=== PATIENT | male | born 1930 | race African-American/Black ===

== ENCOUNTER 2019-08-09 21:28 | Inpatient (IN) | payer OTHER ==
[~2019-08-09] VITALS: Ht 182.9 cm; Wt 98.4 kg
[~2019-08-09 21:28] MED LIST: ALLO300T2 PO; ASPI-1497 PO; ATOR40TA70 PO; CALCIUM PO; FERR-43 PO; HYDR25TA PO; LOSA50TA41 PO; PRAZ1CAP5 PO; TIOT18CA3 INH
[2019-08-09] MEDS ORDERED: SODIUM CHLORIDE 0.9% 1,000 ML IV ONE (22:21)
[2019-08-09 23:16] LABS: BG BASE EXCESS -6.7 mmol/L (-2.0-2.0); BG CARBOXYHEMOGLOBIN 0.3 % (0.5-1.5); BG FRACTION INSPIRED OXYGEN 21; BG METHEMOGLOBIN 0.1 % (0.0-1.5); BG OXYHEMOGLOBIN 92.6 % (94.0-97.0); BG PCO2 32.3 mmHg (35.0-45.0); BG PH 7.363 (7.350-7.450); BG PO2 70.6 mmHg (75.0-100.0); BG SAMPLE SITE RIGHT RADIAL; BG TOTAL HEMOGLOBIN 8.7 g/dL (12.0-18.0); BG VENT MODE ROOM AIR
[2019-08-09 23:20] LABS: BASOPHILS % 0.1 % (0.0-2.0); EOSINOPHILS % 0.7 % (0.0-5.0); HEMATOCRIT. 23.5 % (42.0-52.0); HEMOGLOBIN. 7.9 g/dL (14.0-18.0); LYMPHOCYTES % 9.3 % (20.0-50.0); MEAN CORPUSCULAR HEMOGLOBIN 31.7 pg (28.0-32.0); MEAN CORPUSCULAR VOLUME 94.2 fL (80.0-94.0); MONOCYTES % 7.9 % (2.0-8.0); PLATELET 134 x1000/uL (130-400); RED CELL DISTRIBUTION WIDTH 16.8 % (11.6-14.6)
[2019-08-09 23:27] LABS: CHLORIDE 118 mEq/L (98-107)
[2019-08-10] VITALS (68 sets, daily range): BP systolic 78–147; BP diastolic 28–116
[2019-08-10] MEDS ORDERED: VANCOMYCIN 1 G PREMIX 200 ML IV ONE (00:45)
[2019-08-10] MEDS ORDERED: PIPERACILLIN/TAZ 3.375G PREMIX 50 ML IV ONE (00:45)
[2019-08-10] MEDS ORDERED: SODIUM CHLORIDE 0.9% 1,000 ML IV NR (02:45)
[2019-08-10] MEDS ORDERED: NOREPINEPHRINE 4 MG in DEXT 5% WATER 250 ML IV STA (02:45)
[2019-08-10] MEDS ORDERED: OLANZAPINE 10 MG/VIAL IM NR (02:45)
[2019-08-10] MEDS ORDERED: NOREPINEPHRINE 4MG/250ML PMX 250 ML IV PRN (03:00)
[2019-08-10] MEDS ORDERED: MIDAZOLAM HCL 2 MG/2 ML VIAL IV ONE (03:15)
[2019-08-10] MEDS ORDERED: MIDAZOLAM HCL 2 MG/2 ML VIAL ONE (03:20)
[2019-08-10] MEDS ORDERED: EPINEPHRINE 1 MG in SODIUM CHLORIDE 0.9% 250 ML IV STA (03:56)
[2019-08-10] MEDS ORDERED: NOREPINEPHRINE 16 MG in DEXT 5% WATER 234 ML IV PRN (05:45)
[2019-08-10] MEDS ORDERED: DEXTROSE 50% WATER 50ML SYRINGE IV PRN (05:45)
[2019-08-10] MEDS: BLOOD SUGAR DIAGNOSTIC STRIP TEST SCH ×4 (06:52→21:31)
[2019-08-10] MEDS: INSULIN LISPRO 100 UNITS/ML SUBCUT SCH ×4 (07:01→21:00)
[2019-08-10] MEDS: NOREPINEPHRINE 16 MG in DEXT 5% WATER 234 ML IV PRN (07:02)
[2019-08-10] MEDS: PIPERACILLIN/TAZOBACTAM 2.25 G in DEXTROSE 5% WATER 50 ML IV SCH ×2 (08:47→16:51)
[2019-08-10] MEDS ORDERED: VANCOMYCIN 1 G PREMIX 200 ML IV SCH (09:00)
[2019-08-10 09:07] LABS: BASOPHILS % 0.1 % (0.0-2.0); EOSINOPHILS % 0.9 % (0.0-5.0); HEMATOCRIT. 24.4 % (42.0-52.0); HEMOGLOBIN. 8.2 g/dL (14.0-18.0); LYMPHOCYTES % 16.4 % (20.0-50.0); MEAN CORPUSCULAR HEMOGLOBIN 31.6 pg (28.0-32.0); MEAN CORPUSCULAR VOLUME 94.4 fL (80.0-94.0); MEAN PLATELET VOLUME 8.9 fl (7.4-10.4); NEUTROPHILS % 74.6 % (40.0-76.0); PLATELET 137 x1000/uL (130-400); RED BLOOD CELL COUNT 2.58 mill/uL (4.7-6.1); RED CELL DISTRIBUTION WIDTH 17.3 % (11.6-14.6)
[2019-08-10] MEDS: BISACODYL 10MG SUPP PR NR ×2 (10:15→11:41)
[2019-08-10] MEDS: NEOMY SULF/BACITRAC ZN/POLY OINT 28GM TOP SCH (10:30)
[2019-08-10 11:03] LABS: TOTAL IRON BINDING CAPACITY 172 ug/dL (250-450)
[2019-08-10] MEDS: MIDODRINE HCL 5MG TABLET PO SCH ×3 (11:41→16:51)
[2019-08-10] MEDS: SODIUM CHLORIDE 0.45% 1,000 ML IV SCH (11:41)
[2019-08-10] MEDS: ONDANSETRON HCL 4MG/2ML INJ IV PRN ×2 (13:24→22:29)
[2019-08-10] MEDS: RISPERIDONE 0.5MG TABLET NG SCH (13:24)
[2019-08-10] MEDS ORDERED: MEGE40TA8 PO (19:08)
[2019-08-10] MEDS ORDERED: DILT120C46 MT (19:08)
[2019-08-10] MEDS ORDERED: TRAZ-252 PO (19:08)
[2019-08-10] MEDS ORDERED: FURO20TA4 PO (19:08)
[2019-08-10] MEDS ORDERED: TERA5CAP4 PO (19:08)
[2019-08-11] VITALS (93 sets, daily range): BP systolic 68–134; BP diastolic 18–94
[2019-08-11] MEDS: PIPERACILLIN/TAZOBACTAM 2.25 G in DEXTROSE 5% WATER 50 ML IV SCH ×3 (00:04→15:37)
[2019-08-11] MEDS: NOREPINEPHRINE 16 MG in DEXT 5% WATER 234 ML IV PRN ×2 (00:09→20:24)
[2019-08-11] MEDS: SODIUM CHLORIDE 0.45% 1,000 ML IV SCH (03:59)
[2019-08-11] MEDS: BLOOD SUGAR DIAGNOSTIC STRIP TEST SCH ×4 (05:32→20:28)
[2019-08-11 05:59] LABS: BASOPHILS % 0.1 % (0.0-2.0); EOSINOPHILS % 0.2 % (0.0-5.0); HEMATOCRIT. 26.8 % (42.0-52.0); HEMOGLOBIN. 9.1 g/dL (14.0-18.0); LYMPHOCYTES % 7.8 % (20.0-50.0); MEAN CORPUSCULAR HEMOGLOBIN 31.9 pg (28.0-32.0); MEAN CORPUSCULAR VOLUME 94.3 fL (80.0-94.0); MEAN PLATELET VOLUME 9.5 fl (7.4-10.4); NEUTROPHILS % 83.9 % (40.0-76.0); PLATELET 150 x1000/uL (130-400); RED BLOOD CELL COUNT 2.85 mill/uL (4.7-6.1); RED CELL DISTRIBUTION WIDTH 16.7 % (11.6-14.6)
[2019-08-11 06:13] LABS: PHOSPHORUS 4.2 mg/dL (2.5-4.9)
[2019-08-11] MEDS: INSULIN LISPRO 100 UNITS/ML SUBCUT SCH ×4 (06:21→20:24)
[2019-08-11] MEDS: RISPERIDONE 0.5MG TABLET NG SCH (08:20)
[2019-08-11] MEDS: MIDODRINE HCL 5MG TABLET PO SCH ×3 (08:21→16:36)
[2019-08-11] MEDS: NEOMY SULF/BACITRAC ZN/POLY OINT 28GM TOP SCH (08:22)
[2019-08-11] MEDS ORDERED: SODIUM POLYSTYRENE SULFONATE 15 G/60 ML BOT PO SCH (09:00)
[2019-08-11] MEDS ORDERED: PANTOPRAZOLE SODIUM 40 MG/VIAL IV SCH (09:00)
[2019-08-11] MEDS: DEXT 5%/0.45% NACL 1000ML 1,000 ML IV SCH (12:37)
[2019-08-11] MEDS: MORPHINE SULFATE 2 MG/ML CPJ (NOT FOR IM USE) IV PRN ×2 (14:51→21:31)
[2019-08-12] VITALS (75 sets, daily range): BP systolic 74–129; BP diastolic 32–72
[2019-08-12] MEDS: MORPHINE SULFATE 2 MG/ML CPJ (NOT FOR IM USE) IV PRN ×3 (00:17→16:06)
[2019-08-12] MEDS: PIPERACILLIN/TAZOBACTAM 2.25 G in DEXTROSE 5% WATER 50 ML IV SCH ×2 (00:21→10:15)
[2019-08-12] MEDS: DEXT 5%/0.45% NACL 1000ML 1,000 ML IV SCH (02:34)
[2019-08-12 05:24] LABS: BASOPHILS % 0.1 % (0.0-2.0); EOSINOPHILS % 0.9 % (0.0-5.0); HEMATOCRIT. 28.2 % (42.0-52.0); HEMOGLOBIN. 9.5 g/dL (14.0-18.0); LYMPHOCYTES % 7.5 % (20.0-50.0); MEAN CORPUSCULAR HEMOGLOBIN 31.5 pg (28.0-32.0); MEAN CORPUSCULAR VOLUME 94.2 fL (80.0-94.0); NEUTROPHILS % 82.5 % (40.0-76.0); PLATELET 164 x1000/uL (130-400); RED CELL DISTRIBUTION WIDTH 17.1 % (11.6-14.6)
[2019-08-12 05:47] LABS: PHOSPHORUS 5.3 mg/dL (2.5-4.9)
[2019-08-12] MEDS: BLOOD SUGAR DIAGNOSTIC STRIP TEST SCH (06:30)
[2019-08-12] MEDS: INSULIN LISPRO 100 UNITS/ML SUBCUT SCH (06:33)
[2019-08-12 07:57] LABS: BG BASE EXCESS -6.8 mmol/L (-2.0-2.0); BG CARBOXYHEMOGLOBIN 0.3 % (0.5-1.5); BG DEOXYHEMOGLOBIN 5.9 % (0.0-5.0); BG HCO3 ACT 19.9 mmol/L (22.0-26.0); BG METHEMOGLOBIN 0.1 % (0.0-1.5); BG OXYGEN SATURATION 94.1 % (92.0-98.5); BG OXYHEMOGLOBIN 93.7 % (94.0-97.0); BG PCO2 45.3 mmHg (35.0-45.0); BG PO2 74.2 mmHg (75.0-100.0); BG SAMPLE SITE RIGHT RADIAL; BG VENT MODE NASAL CANNULA
[2019-08-12] MEDS: NEOMY SULF/BACITRAC ZN/POLY OINT 28GM TOP SCH (09:00)
[2019-08-12] MEDS: RISPERIDONE 0.5MG TABLET NG SCH (10:15)
[2019-08-12] MEDS: MIDODRINE HCL 5MG TABLET PO SCH (10:16)
[2019-08-12] MEDS ORDERED: IPRATROPIUM/ALBUTEROL 0.5-3(2.5)MG/3ML NEB HHN PRN (11:15)
[2019-08-12] MEDS ORDERED: VANCOMYCIN 750 MG PREMIX 150 ML IV NR (12:00)
[2019-08-12] MEDS: LORAZEPAM 2MG/ML CPJ IV PRN (16:54)
[2019-08-13] VITALS (24 sets, daily range): BP systolic 86–128; BP diastolic 35–66
[2019-08-13] MEDS: LORAZEPAM 2MG/ML CPJ IV PRN ×2 (08:06→18:15)
[2019-08-13] MEDS: MORPHINE SULFATE 2 MG/ML CPJ (NOT FOR IM USE) IV PRN ×2 (08:07→18:17)
[2019-08-13] MEDS: RISPERIDONE 0.5MG TABLET NG SCH (09:00)
[2019-08-13] MEDS: DEXT 5%/0.45% NACL 1000ML 1,000 ML IV SCH (21:32)
[2019-08-14] VITALS (11 sets, daily range): BP systolic 87–154; BP diastolic 38–52
[2019-08-14] MEDS: RISPERIDONE 0.5MG TABLET NG SCH (09:00)
[2019-08-14] MEDS: DEXT 5%/0.45% NACL 1000ML 1,000 ML IV SCH (15:45)
== END 2019-08-14 17:37 | disposition hospice, home (50) | DRG 871 ==
LOC: ER 21:28 → EDBEDREQ 08-10 01:25 → EDBEDREQDT 08-10 01:25 → EDBEDREQSVC 08-10 01:25 → EDBEDREQTM 08-10 01:25 → ENRESERV 08-10 02:42 → MICUNO 08-10 04:17 → 6EST 08-14 08:55
PROVIDERS: ADMIT Internal Medicine; ATTEND Internal Medicine
PROC: 06HY33Z Insertion of Infusion Device into Lower Vein, Percutaneous Approach (ICD-10-PCS; principal; 2019-08-09)
DX: A41.9 Sepsis, unspecified organism (principal); R65.21 Severe sepsis with septic shock; E43 Unspecified severe protein-calorie malnutrition; J18.9 Pneumonia, unspecified organism; N17.0 Acute kidney failure with tubular necrosis; K85.90 Acute pancreatitis without necrosis or infection, unspecified; J96.01 Acute respiratory failure with hypoxia; E87.0 Hyperosmolality and hypernatremia; J44.0 Chronic obstructive pulmonary disease with (acute) lower respiratory infection; J98.11 Atelectasis; E87.2 Acidosis; I69.351 Hemiplegia and hemiparesis following cerebral infarction affecting right dominant side; N18.4 Chronic kidney disease, stage 4 (severe); Z51.5 Encounter for palliative care; Z66 Do not resuscitate; J44.9 Chronic obstructive pulmonary disease, unspecified; E87.5 Hyperkalemia; R00.1 Bradycardia, unspecified; E87.8 Other disorders of electrolyte and fluid balance, not elsewhere classified; I12.9 Hypertensive chronic kidney disease with stage 1 through stage 4 chronic kidney disease, or unspecified chronic kidney disease; E11.621 Type 2 diabetes mellitus with foot ulcer; L97.519 Non-pressure chronic ulcer of other part of right foot with unspecified severity; D50.9 Iron deficiency anemia, unspecified; E11.22 Type 2 diabetes mellitus with diabetic chronic kidney disease; F03.90 Unspecified dementia, unspecified severity, without behavioral disturbance, psychotic disturbance, mood disturbance, and anxiety; N40.0 Benign prostatic hyperplasia without lower urinary tract symptoms; M10.9 Gout, unspecified; S90.425A Blister (nonthermal), left lesser toe(s), initial encounter; X58.XXXA Exposure to other specified factors, initial encounter; Y93.89 Activity, other specified; Y92.89 Other specified places as the place of occurrence of the external cause; Y99.8 Other external cause status; Z88.1 Allergy status to other antibiotic agents; Z82.49 Family history of ischemic heart disease and other diseases of the circulatory system; Z83.3 Family history of diabetes mellitus; Z68.29 Body mass index [BMI] 29.0-29.9, adult; Z79.82 Long term (current) use of aspirin; Z79.899 Other long term (current) drug therapy; Z78.1 Physical restraint status
CPT/HCPCS: 36415; 36600; 71045; 74018; 74176; 76770; 80048; 80053; 80202; 82375; 82550; 82728; 82805; 82962; 83036; 83540; 83550; 83605; 83735; 84100; 84145; 84443; 84484; 85025; 93005; 93970; 99291; J1815; J2060; J2250; J2270; J2405; J2543; J3370; J3490; J7030; J7050; J7060